=== PATIENT | male | born 1955 | race Caucasian/White ===

== ENCOUNTER 2024-01-07 07:38 | Day surgery (SDC) | payer MEDICAID ==
[~2024-01-07] VITALS: Ht 165.1 cm; Wt 81.8 kg
[~2024-01-07 07:38] MED LIST: SODIUM CHLORIDE 0.9% 1,000 ML ONE
[2024-01-07] MEDS ORDERED: LISI20TA24 PO (08:08)
[2024-01-07] MEDS: SODIUM CHLORIDE 0.9% 1,000 ML IV ONE (08:36)
[2024-01-07] MEDS ORDERED: LIDOCAINE/PF 2% 5 ML VIAL IM ONE (12:00)
[2024-01-07] MEDS ORDERED: PROPOFOL 1% 20 ML VIAL IVP ONE (12:00)
== END 2024-01-07 11:20 | disposition home or self-care (01) ==
LOC: SURGERY 07:38
PROVIDERS: ATTEND Internal Medicine Gastroenterology
DX: Z12.11 Encounter for screening for malignant neoplasm of colon (principal); K64.2 Third degree hemorrhoids; K62.7 Radiation proctitis; I10 Essential (primary) hypertension; Z98.890 Other specified postprocedural states
CPT/HCPCS: 45378; J2704; J3490; J7030